=== PATIENT | female | born 1960 ===

== ENCOUNTER 2018-01-23 06:21 | Day surgery (SDC) | payer BC, MEDICARE ==
[2018-01-11 10:32] VITALS: BMI 27.6
[2018-01-23] MEDS ORDERED: HEPARIN SODIUM/NS 2,000 ML IV ONE (07:18)
[2018-01-23] MEDS ORDERED: Lidocaine 2% Inj (20ml) ONE (07:18)
[2018-01-23] MEDS ORDERED: Midazolam 2 MG/2 ML VIAL ONE (07:20)
[2018-01-23] MEDS ORDERED: Sodium Chloride 0.9% 1,000 ML IV SCH (08:45)
[2018-01-23 08:53] VITALS: TEMP 98.3
[2018-01-23 10:22] VITALS: RESP 18
--- NOTE | 2018-01-23 12:24 | CARDCATH ---
PROCEDURE DATE: 01/23/2018 PROCEDURES: 1. Selective left and right coronary angiography. 2. Right heart catheterization. 3. Right femoral arteriography. 4. Angio-Seal deployment. HISTORY: This is a 57-year-old woman with bicuspid aortic valve, recent exertional chest pain and dizziness and found to have severe aortic stenosis on physical examination and by echocardiography. Cardiac catheterization was recommended in anticipation for the bowel surgery. INDICATIONS: Severe symptomatic aortic stenosis. FINDINGS: HEMODYNAMICS: The right heart pressures were as follows. The RA mean pressure was 4. The RV pressure was 38/4. The PA pressure was 37/9 with pulmonary capillary wedge pressure of 8. The cardiac output by thermodilution method was 5.3 L per minute with cardiac index of 3.1 L per minute per meter squared. Unfortunately, the valve was crossed with a wire, but a catheter cannot be advanced. The peak gradient on echocardiography had been 75 mmHg. Based upon this and the cardiac output, the calculated aortic valve area was 0.62 square centimeters. CORONARY ANATOMY: 1. The left mainstem was short and normal. 2. Left anterior descending artery and its branches were normal. 3. Left circumflex artery and its branches were normal as well. 4. The right coronary artery was dominant and normal. LEFT VENTRICULOGRAPHY: Not performed due to inability to cross the valve with a catheter. RIGHT FEMORAL ARTERIOGRAPHY: A right femoral arteriogram was performed in the TATUM projection. This revealed appropriate level for arterial puncture with no evidence of significant disease. The puncture site was then closed with deployment of an Angio-Seal device. The sheath in the right femoral vein was removed and manual pressure applied and adequate hemostasis was obtained. CONCLUSION: 1. Severe aortic stenosis. 2. Normal coronary arteries. RECOMMENDATIONS: Given the above findings, the evaluation for surgical aortic valve replacement will be recommended. Jose Bettencourt MD
[2018-01-23 12:31] VITALS: BP 114/69; PULSE 64; O2SAT 97
== END 2018-01-23 13:05 | disposition home or self-care (01) ==
LOC: CATH 06:21
PROVIDERS: ATTEND Internal Medicine Cardiovascular Disease
DX: I35.0 Nonrheumatic aortic (valve) stenosis (principal)
CPT/HCPCS: 36415; 86850; 86900; 93460; 99152; 99153; C1760; C1769 ×3; C1887; C1894; C2629; J1644; J2250; J3010; J7040 ×2; Q9967